=== PATIENT | female | born 1960 | race Two or more races ===

== ENCOUNTER 2021-07-06 13:42 | Emergency (ER) | payer MEDICAID ==
[~2021-07-06] VITALS: Ht 177.8 cm; Wt 88.0 kg
[2021-07-06] MEDS ORDERED: zoloft (13:46)
[2021-07-06] MEDS ORDERED: ASPIRIN 81MG TABLET PO ONE (14:30)
[2021-07-06] MEDS ORDERED: MORPHINE SULFATE 2 MG/ML CPJ (NOT FOR IM USE) IV ONE (14:45)
[2021-07-06 15:36] LABS: BASOPHILS % 0.5 % (0.0-2.0); EOSINOPHILS % 0.6 % (0.0-5.0); HEMATOCRIT. 44.5 % (36.0-48.0); HEMOGLOBIN. 15.4 g/dL (12.0-16.0); LYMPHOCYTES % 29.4 % (20.0-50.0); MEAN CORPUSCULAR HEMOGLOBIN 33.6 pg (28.0-32.0); MEAN CORPUSCULAR VOLUME 97.2 fL (81.0-99.0); MEAN PLATELET VOLUME 6.7 fl (7.4-10.4); MONOCYTES % 9.3 % (2.0-8.0); NEUTROPHILS % 60.2 % (40.0-76.0); PLATELET 275 x1000/uL (130-400); RED BLOOD CELL COUNT 4.58 mill/uL (4.2-5.4); RED CELL DISTRIBUTION WIDTH 13.8 % (11.6-14.6)
[2021-07-06 15:37] LABS: CHLORIDE 105 mEq/L (98-107)
[2021-07-06 15:39] LABS: INR 0.9; PROTHROMBIN TIME 10.2 sec (9.6-11.0)
[2021-07-06 21:49] VITALS: BP 146/92
== END 2021-07-06 21:50 | disposition home or self-care (01) ==
LOC: ER 13:42
DX: S09.8XXA Other specified injuries of head, initial encounter (principal); R07.89 Other chest pain; E11.9 Type 2 diabetes mellitus without complications; I10 Essential (primary) hypertension; F32.9 Major depressive disorder, single episode, unspecified; W22.09XA Striking against other stationary object, initial encounter; Y93.89 Activity, other specified; Y92.018 Other place in single-family (private) house as the place of occurrence of the external cause
CPT/HCPCS: 36415; 70450; 71045; 80053; 83880; 84484; 85025; 85610; 93005; 99285; Z7610